=== PATIENT | female | born 1940 | race Caucasian/White ===

== ENCOUNTER 2022-08-07 20:04 | Observation (INO) | payer OTHER ==
[2022-08-07 20:18] VITALS: BMI 27.6
[2022-08-07 21:07] LABS: BASO % 0.9 % (0-2.0); EOS % 2.8 % (0-4.5); HEMATOCRIT 39.7 % (32.4-45.2); HEMOGLOBIN 12.9 GM/dL (10.7-15.3); LYMPH % 13.8 % (8-40); MCH 29.4 pg (25.7-33.7); MCHC 32.4 g/dl (32.0-36.0); MEAN CELL VOLUME 90.5 fl (80-96); MEAN PLT VOLUME 8.4 fl (7.5-11.1); MONO % 7.1 % (3.8-10.2); NEUT % 75.4 % (42.8-82.8); PLATELET COUNT 217 10^3/uL (134-434); RBC 4.39 M/mm3 (3.60-5.2); RDW 13.6 % (11.6-15.6); WHITE BLOOD COUNT 10.9 K/mm3 (4.0-10.0)
[2022-08-07 21:28] LABS: CALCIUM 8.7 mg/dL (8.5-10.1); CHLORIDE 109 mmol/L (98-107); SODIUM 142 mmol/L (136-145)
[2022-08-07 21:29] LABS: ALBUMIN 3.2 g/dl (3.4-5.0); BLOOD UREA NITROGEN 19.4 mg/dL (7-18); CO2 27 mmol/L (21-32); GLUCOSE,RANDOM 203 mg/dL (74-106)
[2022-08-07 21:32] LABS: CREATININE 1.2 mg/dL (0.55-1.3); SGOT/AST 61 U/L (15-37); SGPT/ALT 50 U/L (13-61)
[2022-08-07 21:33] LABS: BILIRUBIN,TOTAL 0.5 mg/dL (0.2-1)
[2022-08-07 21:35] LABS: ALK PHOS 49 U/L (45-117)
[2022-08-07 21:37] LABS: N-TERMINAL BNP 72.8 pg/ml (5-450)
[2022-08-07 21:46] LABS: ANION GAP 6 MMOL/L (8-16)
[2022-08-07 22:56] LABS: ALBUMIN 3.4 g/dl (3.4-5.0); BLOOD UREA NITROGEN 21.9 mg/dL (7-18); CALCIUM 9.4 mg/dL (8.5-10.1)
[2022-08-07 23:00] LABS: CREATININE 1.1 mg/dL (0.55-1.3)
[2022-08-07 23:02] LABS: BILIRUBIN,TOTAL 0.5 mg/dL (0.2-1); TOT PROT 5.9 g/dl (6.4-8.2)
[2022-08-07] MEDS ORDERED: SODIUM CHLORIDE 0.9% 500 ML INFUS.BAG IV ONE (23:47)
[2022-08-08 02:54] LABS: EPI CELLS 8 /uL (0-25.1); HYALINE CASTS 1 /uL (0-3.1); PH,URINE 5.5 (5.0-8.0); URINE APPEARANCE CLEAR; URINE BACTERIA 41 /uL (0-1359); URINE BILIRUBIN NEGATIVE (NEGATIVE); URINE COLOR YELLOW; URINE GLUCOSE (UA) NEGATIVE (NEGATIVE); URINE KETONE NEGATIVE (NEGATIVE); URINE LEUK ESTERASE 1+ (NEGATIVE); URINE NITRITE NEGATIVE (NEGATIVE); URINE PROTEIN NEGATIVE (NEGATIVE); URINE RBC 17 /uL (0-23.9); URINE UROBILINOGEN 0.2 mg/dL (0.2-1.0); URINE WBC 176 /uL (0-25.8)
[2022-08-08] MEDS ORDERED: ENOXAPARIN NA (PORCINE) 40 MG/0.4 ML DISP.SYRIN SQ SCH (10:00)
[2022-08-08 10:11] LABS: BASO % 0.7 % (0-2.0); HEMATOCRIT 35.9 % (32.4-45.2); HEMOGLOBIN 11.7 GM/dL (10.7-15.3); LYMPH % 26.6 % (8-40); MCH 29.3 pg (25.7-33.7); MCHC 32.5 g/dl (32.0-36.0); MEAN CELL VOLUME 90.1 fl (80-96); MEAN PLT VOLUME 8.5 fl (7.5-11.1); MONO % 7.8 % (3.8-10.2); NEUT % 58.9 % (42.8-82.8); PLATELET COUNT 195 10^3/uL (134-434); RBC 3.99 M/mm3 (3.60-5.2); RDW 13.9 % (11.6-15.6); WHITE BLOOD COUNT 6.7 K/mm3 (4.0-10.0)
[2022-08-08] MEDS ORDERED: DONEPEZIL HCL 5 MG TABLET (FP) ONE (10:13)
[2022-08-08] MEDS ORDERED: LEVOTHYROXINE NA 50 MCG TABLET (FP) ONE (10:14)
[2022-08-08] MEDS: EZETIMIBE 10 MG TABLET (FP) PO SCH (10:21)
[2022-08-08] MEDS: DONEPEZIL HCL 5 MG TABLET (FP) PO SCH (10:21)
[2022-08-08] MEDS: LEVOTHYROXINE NA 100 MCG TABLET (FP) PO SCH (10:21)
[2022-08-08 10:33] LABS: ALBUMIN 3.2 g/dl (3.4-5.0)
[2022-08-08 10:34] LABS: CALCIUM 8.4 mg/dL (8.5-10.1)
[2022-08-08 10:35] LABS: MAGNESIUM 2.2 mg/dL (1.8-2.4)
[2022-08-08 10:36] LABS: CREATININE 1.1 mg/dL (0.55-1.3)
[2022-08-08 10:37] LABS: BILIRUBIN,TOTAL 0.7 mg/dL (0.2-1); TOT PROT 5.6 g/dl (6.4-8.2)
[2022-08-08 21:01] VITALS: RESP 18
[2022-08-08] MEDS: ATORVASTATIN CA 40 MG TABLET (FP) PO SCH (21:21)
[2022-08-08] MEDS: D5-1/2NS+10 MEQ KCL - 10 MEQ/1,000 ML INFUS.BAG IV SCH (21:21)
[2022-08-09] MEDS: LEVOTHYROXINE NA 100 MCG TABLET (FP) PO SCH (06:08)
[2022-08-09 08:36] LABS: HEMATOCRIT 32.8 % (32.4-45.2); HEMOGLOBIN 10.8 GM/dL (10.7-15.3); MCH 29.9 pg (25.7-33.7); MEAN CELL VOLUME 90.6 fl (80-96); MEAN PLT VOLUME 8.6 fl (7.5-11.1); PLATELET COUNT 188 10^3/uL (134-434); RBC 3.61 M/mm3 (3.60-5.2); WHITE BLOOD COUNT 6.6 K/mm3 (4.0-10.0)
[2022-08-09] MEDS: EZETIMIBE 10 MG TABLET (FP) PO SCH (09:23)
[2022-08-09] MEDS: DONEPEZIL HCL 5 MG TABLET (FP) PO SCH (09:23)
[2022-08-09 09:27] LABS: BLOOD UREA NITROGEN 20.8 mg/dL (7-18); CALCIUM 8.3 mg/dL (8.5-10.1)
[2022-08-09 09:31] LABS: CREATININE 1.1 mg/dL (0.55-1.3)
[2022-08-09] MEDS: D5-1/2NS+10 MEQ KCL - 10 MEQ/1,000 ML INFUS.BAG IV SCH (19:16)
[2022-08-09] MEDS: ATORVASTATIN CA 40 MG TABLET (FP) PO SCH ×2 (20:38→21:26)
[2022-08-10] MEDS: LEVOTHYROXINE NA 100 MCG TABLET (FP) PO SCH (06:16)
[2022-08-10 08:29] LABS: HEMATOCRIT 34.2 % (32.4-45.2); HEMOGLOBIN 11.3 GM/dL (10.7-15.3); MCH 29.8 pg (25.7-33.7); MCHC 33.1 g/dl (32.0-36.0); MEAN CELL VOLUME 89.9 fl (80-96); MEAN PLT VOLUME 8.6 fl (7.5-11.1); PLATELET COUNT 205 10^3/uL (134-434); RDW 13.5 % (11.6-15.6); WHITE BLOOD COUNT 8.1 K/mm3 (4.0-10.0)
[2022-08-10 09:02] LABS: ALBUMIN 3.4 g/dl (3.4-5.0); BLOOD UREA NITROGEN 25.2 mg/dL (7-18); CALCIUM 8.7 mg/dL (8.5-10.1)
[2022-08-10 09:06] LABS: CREATININE 1.1 mg/dL (0.55-1.3); TOT PROT 6.2 g/dl (6.4-8.2)
[2022-08-10 09:07] LABS: BILIRUBIN,TOTAL 0.8 mg/dL (0.2-1)
[2022-08-10] MEDS ORDERED: ACETAMINOPHEN 1000 MG/100 ML BAG IVPB ONE (09:31)
[2022-08-10] MEDS: DONEPEZIL HCL 5 MG TABLET (FP) PO SCH (09:53)
[2022-08-10] MEDS: EZETIMIBE 10 MG TABLET (FP) PO SCH (09:53)
[2022-08-10] MEDS ORDERED: LACTATED RINGERS SOLUTION 1,000 ML/1,000 ML INFUS.BAG IV SCH (12:00)
[2022-08-10 15:01] VITALS: BP 136/63; PULSE 66; TEMP 98
== END 2022-08-10 15:14 | disposition home or self-care (01) ==
LOC: JER 20:04 → EDBD 20:04 → JERBED 08-08 01:57 → J4W 08-08 15:41
PROVIDERS: ADMIT Internal Medicine; ATTEND Internal Medicine
PROC: 3E0337Z Introduction of Electrolytic and Water Balance Substance into Peripheral Vein, Percutaneous Approach (ICD-10-PCS; principal; 2022-08-08)
DX: S30.0XXA Contusion of lower back and pelvis, initial encounter (principal); I25.10 Atherosclerotic heart disease of native coronary artery without angina pectoris; I11.9 Hypertensive heart disease without heart failure; Z95.0 Presence of cardiac pacemaker; G30.9 Alzheimer's disease, unspecified; F02.811 Dementia in other diseases classified elsewhere, unspecified severity, with agitation; E03.9 Hypothyroidism, unspecified; Z95.1 Presence of aortocoronary bypass graft; E78.5 Hyperlipidemia, unspecified; R29.6 Repeated falls; W01.0XXA Fall on same level from slipping, tripping and stumbling without subsequent striking against object, initial encounter; Z91.81 History of falling; Y93.89 Activity, other specified; Y92.009 Unspecified place in unspecified non-institutional (private) residence as the place of occurrence of the external cause
CPT/HCPCS: 0241U-QW; 36415; 70450-TC; 71045-TC-FY; 72125-TC; 72131-TC; 72170-TC-FY; 73502-TC-LT-FY; 73700-TC-RT; 74177-TC; 80048; 80053; 81003; 82550; 82553; 83036; 83735; 83880; 84100; 84439; 84443; 84484; 85025; 85027; 85730; 87086; 93005; 93010; 93306-TC; 96360; 97116-GP; 97161-GP; 99285-25; G0378